=== PATIENT | female | born 1965 | race Caucasian/White ===

== ENCOUNTER → 2016-11-28 | Outpatient (CLI) | payer MEDICARE, OTHER ==
[~2016-11-28] MED LIST: BIOTIN PO; CAL PO; CALCIUM + VITA1 EACH PO; COLACE 100MG C100 MG PO; FEROSUL325 MG PO; FISH OIL 1,0001 EACH PO; LINZESS145 MCG PO; MELATONIN10 M2 PO; NAPROSYN500 MG PO; NORCO 7.5-3251 EACH PO; PRENATAL FORMU1 EAC2 PO; TIVICAY50 MG PO; TRUVADA 200 MG1 EACH PO; VIT C PO; VIT D PO; VITAMIN C 500500 MG PO
== END ==
LOC: CT 13:53
DX: K59.00 Constipation, unspecified (principal); D64.9 Anemia, unspecified; R50.9 Fever, unspecified; K80.20 Calculus of gallbladder without cholecystitis without obstruction
CPT/HCPCS: J7050; Q9962

== ENCOUNTER → 2016-12-13 | Outpatient (CLI) | payer MEDICARE, OTHER | LOC: MRI 09:22 | DX: K80.20 Calculus of gallbladder without cholecystitis without obstruction (principal) | CPT/HCPCS: 74183; A9577 ==